=== PATIENT | female | born 1985 | race Hispanic/Latino ===

== ENCOUNTER 2019-12-09 12:49 | Inpatient (IN) | payer SELFPAY ==
[~2019-12-09 12:49] MED LIST: Iopamidol-370 76% 500 ML 1 ML ONE
--- NOTE | 2019-12-09 15:40 | RAD ---
XR Chest 1 View Portable HISTORY: Chest pain, shortness of breath COMPARISON: None FINDINGS: The heart size is normal. The lungs are well expanded without focal areas of consolidation, pneumothorax or pleural effusions. IMPRESSION: No radiographic evidence of acute cardiopulmonary process.
[2019-12-09 15:43] LABS: #Basophils 0.1 thou/uL (0.0-0.2); #Eosinphils 0.1 thou/uL (0.0-0.7); #Lymphocytes 1.3 thou/uL (1.20-3.40); #Monocytes 0.4 thou/uL (0.11-0.59); #Neutrophils 7.8 thou/uL (1.40-6.50); %Basophils 0.8 % (0.0-1.0); %Lymphocytes 13.3 % (21.0-51.0); %Monocytes 4.6 % (0.0-10.0); %Neutrophils 80.3 % (42.0-75.0); Hemoglobin 6.1 g/dL (12.0-16.0); Mean Corpuscular HGB CONC 31.2 g/dL (32.0-36.0); Mean Corpuscular Hemoglobin 25.1 pg (27.0-31.0); Mean Corpuscular Volume 80.6 fL (78.0-98.0); Mean Platelet Volume 5.7 fL (7.4-10.4); Platelet Count 649 thou/uL (130-400); RBC Distribution Width 16.6 % (11.5-14.5); Red Blood Cell (RBC) Count 2.43 mill/uL (4.20-5.40); White Blood Cell (WBC) Count 9.7 thou/uL (4.8-10.8)
[2019-12-09 15:50] LABS: BHCG - Serum Negative (NEGATIVE); Pregs Control Background? CLEAR/WHITE (CLR/WHITE); Pregs Control Bar Appear? YES (CONTROL BAR)
[2019-12-09 15:56] LABS: Bilirubin Negative (Negative); Blood, Urine Negative (Negative); Clarity Clear (Clear); Glucose, Urine (Dipstick) Normal (Negative); Ketone, Urine Negative (Negative); Leukocyte Negative Leu/uL (Negative); Nitrite Negative (Negative); Protein, Urine (Dipstick) Negative (Neg-Trace); Specific Gravity, Urine 1.014 (1.002-1.036); Urobilinogen Normal mg/dL (Less than 2); pH, Urine 6.5 (5.0-9.0)
[2019-12-09 16:05] LABS: ALT (SGPT) 23 U/L (8-55); AST (SGOT) 19 U/L (5-34); Alkaline Phosphatase 90 U/L (40-110); Anion Gap 9 mmol/L (10-20); BUN (Urea Nitrogen) 7 mg/dL (7.0-18.7); Bilirubin, Total Less than 0.2 mg/dL (0.2-1.2); Calc. Creatinine Clearance 0 mL/min (70-130); Calcium 8.1 mg/dL (7.8-10.44); Carbon Dioxide 25 mmol/L (22-29); Chloride 103 mmol/L (98-107); Estimated GFR-MDRD Greater than 90; Globulin 3.6 g/dL (2.4-3.5); Glucose 94 mg/dL (70-105); Lipase 399 U/L (8-78); Protein, Total 6.6 g/dL (6.0-8.3); Sodium 133 mmol/L (136-145)
[2019-12-09 16:20] LABS: PTT 32.4 sec (22.9-36.1); Prothrombin Time 13.5 sec (12.0-14.7)
[2019-12-09] MEDS ORDERED: Morphine 4 MG/ML VIAL ONE (16:25)
[2019-12-09 16:34] LABS: Iron 12 ug/dL (50-170); Iron Binding Capacity, Total 366 mcg/dL (265-497)
--- NOTE | 2019-12-09 17:16 | CT ---
CT OF THE ABDOMEN AND PELVIS WITH IV CONTRAST INDICATION: Abdominal pain with hematuria COMPARISON: None FINDINGS: ABDOMEN: Lung bases: Clear Liver: No focal lesion. Gallbladder: Normal appearing. Pancreas: Normal. Adrenal glands: Normal. Spleen: Normal. Kidneys and ureters: Normal. No hydronephrosis. Vasculature: Normal. Lymph nodes:No lymphadenopathy. Free fluid in abdomen:No free fluid is evident. PELVIS: Small and large bowel: There is prominent wall thickening involving the stomach. There is a moderate amount of retained stool within the colon. The unopacified small bowel is unremarkable appearing. Appendix:Normal Bladder: Normal. Rectal and perirectal soft tissues:Normal. Reproductive structures: Normal. Free fluid in pelvis: Mild free fluid Lymphadenopathy pelvis: No lymphadenopathy is evident. Osseous structures: No acute osseous abnormality. No destructive osteolytic or osteoblastic lesion i s identified. Soft tissues:Normal. IMPRESSION: 1. Prominent wall thickening of the stomach suspicious for gastritis. Findings can be related to pept ic ulcer disease, other infectious gastritis or inflammatory gastritis related entities such as Crohn's. Recommend correlation with clinical exam. 2. Moderate amount retained stool within the colon. 3. Nonspecific mild free fluid in the pelvis.
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
[2019-12-09] MEDS ORDERED: Ondansetron ODT 4 MG TAB SL PRN (19:23)
[2019-12-09] MEDS ORDERED: Ondansetron PF 4 MG/2 ML Vial IVP PRN (19:23)
[2019-12-09] MEDS ORDERED: Acetaminophen 325 MG TAB PO PRN ×2 (19:23→19:26)
[2019-12-09] MEDS ORDERED: Polyethylene Glycol 3350 17 GM Packet PO PRN (19:26)
[2019-12-09] MEDS ORDERED: Ondansetron ODT 4 MG TAB PO PRN (19:26)
[2019-12-09] MEDS ORDERED: Zolpidem Tartrate 5 MG TAB PO PRN (19:26)
[2019-12-09] MEDS ORDERED: Sodium Chloride 0.9% 1,000 ML IV SCH (19:30)
[2019-12-09] MEDS ORDERED: Iron, Sodium Ferric Gluconate 250 MG in Sodium Chloride 0.9% 100 ML IVPB SCH (20:00)
[2019-12-09] MEDS: Cefdinir 300 MG CAP PO SCH (20:31)
[2019-12-09] MEDS: Morphine 2 MG/ML VIAL SLOW IVP PRN (20:31)
[2019-12-09] MEDS: Pantoprazole 40 MG VIAL IVP SCH (20:32)
[2019-12-09] MEDS: Sodium Chloride 0.9% 1,000 ML IV SCH (20:33)
[2019-12-09 22:22] VITALS: BP 115/89
[2019-12-10 00:35] LABS: #Eosinphils 0.2 thou/uL (0.0-0.7); #Lymphocytes 2.6 thou/uL (1.20-3.40); #Monocytes 0.5 thou/uL (0.11-0.59); #Neutrophils 6.3 thou/uL (1.40-6.50); %Eosinophils 1.8 % (0.0-10.0); %Lymphocytes 26.7 % (21.0-51.0); %Monocytes 5.6 % (0.0-10.0); %Neutrophils 65.9 % (42.0-75.0); Mean Corpuscular HGB CONC 31.4 g/dL (32.0-36.0); Mean Corpuscular Hemoglobin 26.2 pg (27.0-31.0); Mean Corpuscular Volume 83.6 fL (78.0-98.0); Mean Platelet Volume 6.2 fL (7.4-10.4); Platelet Count 581 thou/uL (130-400); RBC Distribution Width 16.8 % (11.5-14.5); Red Blood Cell (RBC) Count 3.04 mill/uL (4.20-5.40); White Blood Cell (WBC) Count 9.6 thou/uL (4.8-10.8)
[2019-12-10] MEDS: Morphine 2 MG/ML VIAL SLOW IVP PRN ×2 (00:41→10:16)
[2019-12-10 04:13] LABS: Anion Gap 9 mmol/L (10-20); BUN (Urea Nitrogen) 5 mg/dL (7.0-18.7); Calc. Creatinine Clearance 110 mL/min (70-130); Calcium 7.8 mg/dL (7.8-10.44); Carbon Dioxide 23 mmol/L (22-29); Chloride 106 mmol/L (98-107); Estimated GFR-MDRD Greater than 90; Glucose 83 mg/dL (70-105); Lipase 275 U/L (8-78); Potassium 4.1 mmol/L (3.5-5.1); Sodium 134 mmol/L (136-145)
[2019-12-10] MEDS: Sodium Chloride 0.9% 1,000 ML IV SCH ×2 (08:14→15:10)
[2019-12-10] MEDS: Pantoprazole 40 MG VIAL IVP SCH (10:12)
[2019-12-10] MEDS: Cefdinir 300 MG CAP PO SCH (10:12)
[2019-12-10 11:22] VITALS: TEMP 97.8
[2019-12-10] MEDS ORDERED: Iron, Sodium Ferric Gluconate 250 MG in Sodium Chloride 0.9% 100 ML IVPB SCH (11:45)
[2019-12-10 12:42] LABS: #Eosinphils 0.2 thou/uL (0.0-0.7); #Lymphocytes 1.3 thou/uL (1.20-3.40); #Monocytes 0.3 thou/uL (0.11-0.59); #Neutrophils 4.1 thou/uL (1.40-6.50); %Eosinophils 3.9 % (0.0-10.0); %Lymphocytes 22.1 % (21.0-51.0); %Monocytes 5.1 % (0.0-10.0); %Neutrophils 68.9 % (42.0-75.0); Hemoglobin 7.7 g/dL (12.0-16.0); Mean Corpuscular HGB CONC 31.4 g/dL (32.0-36.0); Mean Corpuscular Hemoglobin 26.4 pg (27.0-31.0); Mean Platelet Volume 6.2 fL (7.4-10.4); Platelet Count 606 thou/uL (130-400); RBC Distribution Width 16.7 % (11.5-14.5)
[2019-12-10 13:15] VITALS: BMI 19.3
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
--- NOTE | 2019-12-16 07:28 | PQF ---
CLINICAL DOCUMENTATION CLARIFICATION FORM: Dear : Sangita Majano Date / Time: ___12/16/2019 Please exercise your independent, professional judgment in responding to the clarification form. Clinical indicators are provided on the bottom of this form for your review Please check appropriate box(es) to clarify if the following diagnosis has been ruled in our ruled out: Acute pancreatitis ( CDI/Coding list diagnosis here) [ ] Ruled in diagnosis [ ] Continue to treat [ ] Resolved [ ] Ruled out diagnosis [ ] Improving [ ] Cannot rule out diagnosis [ ] Other diagnosis [ x ] Unable to determine Physician Signature: Date/Time: For continuity of documentation, please document condition throughout progress notes and discharge summary. Thank You. To be completed by CDI/Coding staff for physician review: Present Clinical Indicators - Signs / Symptoms / Labs Results and Location in Medical Record [ x ] Acute pancreatitis ED record, 12/08, Jaime Mcclendon DO [ x ] Elevated lipase DS, 12/09, Sangita Majano MD [ x ] Abdomen pain, epigastric resolved DS, 12/09, Sangita Majano MD [ x ] She did have a 399 lipase H&P, 12/08, Sangita Majano MD Present Risk Factors Results and Location in Medical Record [ x ] PUD H&P, 12/08, Sangita Majano MD Present Treatments Results and Location in Medical Record [ x ] Pantaprazole.IV AUG, 12/08 [ x ] Sodium chloride.IV AUG, 12/08 CDS/Welfare Case Worker Signature: Jas Peña Phone #: [phone] Date/Time:_ 12/16/2019 This is a permanent part of the Medical Record [facility]
== END 2019-12-10 15:30 | disposition home or self-care (01) | DRG 383 ==
LOC: ERS 12:49 → IMCU/EMU 17:57
PROVIDERS: ADMIT Internal Medicine; ATTEND Internal Medicine
PROC: 30233N1 Transfusion of Nonautologous Red Blood Cells into Peripheral Vein, Percutaneous Approach (ICD-10-PCS; principal; 2019-12-09)
DX: K27.9 Peptic ulcer, site unspecified, unspecified as acute or chronic, without hemorrhage or perforation (principal); K85.90 Acute pancreatitis without necrosis or infection, unspecified; D50.0 Iron deficiency anemia secondary to blood loss (chronic); F41.9 Anxiety disorder, unspecified; J45.909 Unspecified asthma, uncomplicated
CPT/HCPCS: 36415; 36430; 71045; 74177; 80048; 80053; 81003; 82728; 83540; 83550; 83690; 84703; 85025; 85379; 85610; 85730; 86850; 86900; 86901; 87086; 93005; 94640; 96361; 96374; C9113; J2270; J2916; J3490; J7620; P9016; Q9967